=== PATIENT | male | born 1965 | race Caucasian/White ===

== ENCOUNTER → 2021-01-13 11:05 | Outpatient (BNVA) | payer SELFPAY | PROVIDERS: Visit Provider Internal Medicine | DX: Z02.79 Encounter for issue of other medical certificate (principal) ==

== ENCOUNTER → 2022-01-09 10:09 | Outpatient (BNVA) | payer SELFPAY | PROVIDERS: Visit Provider Internal Medicine | DX: Z02.79 Encounter for issue of other medical certificate (principal) ==

== ENCOUNTER → 2023-01-01 11:01 | Outpatient (BNVA) | payer SELFPAY | PROVIDERS: Visit Provider Internal Medicine | DX: Z02.79 Encounter for issue of other medical certificate (principal) ==

== ENCOUNTER 2023-10-24 08:52 | Outpatient (AMB) | payer OTHER, SELFPAY ==
--- NOTE | 2023-10-24 09:11 | MHC.OFFVIS ---
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 Patient states pain started approximately a year ago. Pain is mainly on his volar aspect of the hand.Patient has tried injections in the past which he has good relief. Patient would like to discuss injection. Hx of trigger finger sx at [facility] about 5 years ago. 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 He complains of painful locking of his left middle finger for a long time. He says he has a hx of relief from steroid injections at an outside clinic. He is requesting an injection today. He has a hx of a previous trigger finger releases at [facility] in ~2018, of his right middle & left ring fingers. 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 He works as a school fundraising director. [facility] Medical History History of seasonal allergies History of hypothyroidism History of hypotension Social History (Updated 10/24/23 @ 09:21 by Kylah Solorzano) Alcohol intake: never Patient Tobacco Use Status: Never used Tobacco Current occupational status: employed Current occupation: school fundraising director/ right hand dominant Review of Systems Const All systems reviewed & are unremarkable except as noted in HPI and below Physical Exam Vital Signs: BMI result Body Mass Index 35.6 Const General: cooperative, healthy appearing and no acute distress Orientation/consciousness: patient oriented x3 HEENT Head: Yes normocephalic and Yes atraumatic Eyes EOM: EOMs intact bilaterally Resp Effort & Inspection: normal respiratory effort and able to speak in complete sentences Cardio Jugular venous distension: no JVD Skin General skin exam: turgor normal Rashes: no rashes Neuro General: patient oriented x3 Extrem Other: Evaluation of Left Upper Extremity: The patient is alert, oriented, and in no acute distress Neuro: Median, Ulnar, Radial nerves motor and sensory intact and sensation is normal to the tips of all digits Vascular: Cap refill brisk ROM: He can make a fist and extend all his digits, except for his index finger He has a flexion contracture of his left index PIP joint of ~90 degrees, and the DIP joint of ~70 degrees. This is not passively reducible He has good flexion at the index finger MCP joint He has scars over the index finger a1 dominik, extending up the volar & radial aspect of the index finger Visible and palpable locking & catching of the middle finger Tender over the middle finger a1 dominik Skin: No lacerations or abrasions. General: No Ecchymosis. No Erythema or evidence of infection. Psych Appearance: grossly normal Affect: normal affect Attitude: cooperative Assessment & Plan Assessment & Plan (1) Trigger finger, left middle finger: Code(s): M65.332 - Trigger finger, left middle finger Category: Medical (2) Diabetes mellitus: Code(s): E11.9 - Type 2 diabetes mellitus without complications Category: Medical Plan Assessment & Plan: 1. Left middle finger trigger finger Hx of injections at an outside clinic I educated him about this condition I discussed operative and non-operative treatment options The patient would like to proceed with surgery The risks and benefits of operative treatment were discussed with the patient and the patient wishes to proceed with surgery. These risks include, but are not limited to risk of damage to blood vessels, nerves, tendons, infection, recurrence, incomplete relief of preoperative symptoms, persistent pain, possible need for further surgery and the risks associated with regional blocks and anesthesia. The plan is to take the patient to the operating room sometime in the next few weeks for the following procedures: 1. Left middle finger trigger release, under local All of the preoperative paperwork including the consent was reviewed today. All the patient's questions were answered. The patient understands that they will be contacted by our plastic surgery assistant soon to schedule this procedure. He would like to be put on the cancellation list for a sooner surgery He denies blood thinners, asthma, heart, lung, kidney issues He is a Diabetic, he says this is controlled but he does not know his most recent HgA1c. They will need an updated HgA1c that is <8.1% in order to proceed with surgery, and they expressed understanding Scribed for Valeria Acevedo MD by Jonathon Cage registered medical assistant, on 10/24/23 at 9:45 AM, EST. Coding Level of Care Code New Pt Level 4 (06806) Diagnoses Trigger finger, left middle finger M65.332 Diabetes mellitus E11.9
[2023-10-24 09:20] VITALS: BMI 35.6
== END 2023-10-24 11:36 | disposition home or self-care (01) ==
PROVIDERS: PCP Physician Assistant; Visit Provider Orthopaedic Surgery
DX: M65.332 Trigger finger, left middle finger (principal); E11.9 Type 2 diabetes mellitus without complications
CPT/HCPCS: 99204

== ENCOUNTER → 2023-10-24 08:52 | Outpatient (BNVA) | payer OTHER, SELFPAY | PROVIDERS: PCP Physician Assistant; Visit Provider Orthopaedic Surgery | DX: M65.332 Trigger finger, left middle finger (principal) | CPT/HCPCS: 99202 ==

== ENCOUNTER → 2023-12-26 07:45 | Outpatient (BNVA) | payer SELFPAY | PROVIDERS: PCP Physician Assistant; Visit Provider Internal Medicine ==

== ENCOUNTER 2023-12-27 08:55 | Day surgery (SDC) | payer OTHER, SELFPAY ==
[2023-12-27 09:55] VITALS: BMI 35.7
[2023-12-27 10:02] VITALS: BP 132/73; PULSE 63; RESP 16; TEMP 36.4; O2SAT 99
--- NOTE | 2023-12-27 11:16 | P.OP_ITS ---
Operative Note Operative Note Date of Service: 12/27/23 Narrative: Operative Note Preop diagnosis: 1. Left middle finger Trigger finger Postop diagnosis: 1. Left middle finger Trigger finger Procedure: 1. Left middle finger A1 dominik release Surgeon: Valeria Acevedo MD Windsurfing Instructor: Zane GOMEZ Anesthesia: local block using 1% lidocaine with epinephrine Findings: No locking or catching after A1 dominik release EBL: Less than 5 mL Tourniquet time: None Specimens: None Complications: None Disposition: Brought to recovery room in stable condition Plan: Follow-up for 10-14 days for wound check and suture removal Indications: The patient is 58 years old, with a left middle finger trigger finger that has been unresponsive to nonoperative management. The risks and benefits of operative treatment including but not limited to risk of damage to blood vessels, nerves, tendons, infection, persistent pain, persistent symptoms, recurrence or possible need for additional surgery were discussed with the patient and the patient wishes to proceed with surgery. Procedure: Once consent was obtained a local block was performed in the preop area using a combination of 1% lidocaine with epinephrine. The patient was then brought back to the operating suite and placed on the operative table in supine position. The left upper extremity was prepped and draped in a standard surgical fashion. Once assured that we had a good block, a 1.5 cm oblique incision was made centered over the A1 dominik of the left middle finger . The incision was made through the skin to the subcutaneous tissues using a #15 blade. Careful dissection was made down to the level of the A1 dominik using tenotomy scissors, with care being taken to protect the nearby neurovascular structures. A longitudinal incision was made in the A1 dominik 1st using a #15 blade, then using tenotomy scissors under direct visualization. The A1 dominik was noted to be thickened. Following our A1 dominik release, we no longer saw any locking or catching of the digit with flexion and extension. Once satisfied with our A1 dominik release the wound was copiously irrigated with normal saline and hemostasis was obtained with a brief period of local pressure. The skin edges were reapproximated with some 5.0 nylon suture material and a sterile dressing was applied. The patient appears to have tolerated the procedure well and with no complications. All digits were well vascularized at the conclusion of the case.
--- NOTE | 2023-12-27 11:16 | MHC.SHP ---
Pre-Procedural Eval Section A - 24 Hr Update-Section A only Date of Service: 12/27/23 The patient is an INPATIENT: No Changes since office visit: No Cold of Flu in the past 2 weeks, No New Medical Problems, No Changes in Medication and No Patient answered all questions The patient has been examined within 24 hours of the surgical procedure. The History & Physical has been completed within 30 days and I have reviewed it.: Yes Section B - Complete if H&P > 30 days Chief Complaint: Trigger finger, left middle finger Allergies: Allergies Allergy/AdvReac Type Severity Reaction Status Date / Time ILAN Inhibitors Allergy Cough Verified 10/24/23 10:03 Plan Diagnosis/Plan: Unchanged I have reviewed the history and physical and performed a pertinent physical examination on my patient. No changes have occurred unless specified. Time Spent With Patient Time: Total time managing care of this patient today ____ minutes.
[2023-12-27 11:50] VITALS: BP 108/58; PULSE 73; RESP 18; O2SAT 98
--- NOTE | 2023-12-27 12:57 | PC.NURSE ---
11:55. Patient speaks and understands Palestinian well. has prescribed pain meds at home.
== END 2023-12-27 11:55 | disposition home or self-care (01) ==
PROVIDERS: PCP Physician Assistant; Visit Provider Orthopaedic Surgery
PROC: (CPT 26055; principal; 2023-12-27 10:20)
DX: M65.332 Trigger finger, left middle finger (principal); E11.9 Type 2 diabetes mellitus without complications
CPT/HCPCS: 26055; J0171

== ENCOUNTER → 2023-12-27 08:55 | Outpatient (BNV) | payer OTHER, SELFPAY | PROVIDERS: PCP Physician Assistant; Visit Provider Orthopaedic Surgery | DX: M65.332 Trigger finger, left middle finger (principal) | CPT/HCPCS: 26055 ==

== ENCOUNTER 2024-01-08 09:14 | Outpatient (AMB) | payer OTHER, SELFPAY ==
[2024-01-08 09:26] VITALS: BMI 35.6
--- NOTE | 2024-01-08 09:26 | A.OFFVIS_ITS ---
Vital Signs 01/08/24 09:26 Height 6 ft 1 in Weight 270 lb BMI 35.6 Intake Visit Reasons: PO-Lt MF Trigger Release 12/27/23 Intake Note: Elvin is a 58 yo right hand dominant male who presents today post operatively s/p left middle finger trigger release done by Dr. Acevedo on 12/27/23. Patient reports taking Ibuprofen 800 mg for pain with relief. Denies numbness and tingl ing. Reports left index locking on finger. Sutures removed in office today and steri strips applied. Allergies ILAN Inhibitors Allergy (Verified 10/24/23 10:03) Cough HPI HPI PO-Lt MF Trigger Release 12/27/23: Details: Elvin is a 58 year old right hand dominant Diabetic man who returns S/P left middle finger trigger release, DOS: 12/27/23. He says he is doing okay. He complains of pain & stiffness in his middle finger, and says he has not been bending his finger often at home. He denies any locking of his middle finger. He wants to know if there is a muscle relaxant or something else he can do at home, such as soaking it in hot water. He has a hx of a previous trigger finger releases at [facility] in ~2018, of his right middle & left ring fingers. 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 He works as a middle school pe teacher. 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 Sutures removed and Steri-Strips applied With encouragement, he can make a fist and extend all his digits, except for his index finger No locking or catching of his middle finger We worked on ROM exercises today in clinic her mild middle finger stiffness He has a flexion contracture of his left index PIP joint of ~90 degrees, and the DIP joint of ~70 degrees. This is not passively reducible He has good flexion at the index finger MCP joint He has scars over the index finger a1 dominik, extending up the volar & radial aspect of the index finger Sensation is intact Cap refill is brisk Psych Appearance: grossly normal Affect: normal affect Attitude: cooperative Assessment & Plan Assessment & Plan (1) Trigger finger, left middle finger: Code(s): M65.332 - Trigger finger, left middle finger Category: Medical (2) Diabetes mellitus: Code(s): E11.9 - Type 2 diabetes mellitus without complications Category: Medical Plan Assessment & Plan: 1. Left middle finger trigger finger, S/P release DOS: 12/27/23 The patient appears to be doing well post-operatively I educated him about the post-operative course I discussed activity modifications, he is to lift nothing heavier than a cellphone for the next two weeks We worked on ROM exercises today in clinic. He should perform ROM exercises 20x daily at home to improve his finger stiffness He should avoid any underwater activities for the next 5 days He should gently massage about the incision site to reduce the risk of hypersensitivity He can follow up prn Scribed for Valeria Acevedo MD by greg Padron scribe, on 01/08/24 at 10:15 AM, EST. Scribe Plan - Not visible on output: Scribed for Valeria Acevedo MD by greg Padron scribe, on [ ] at [ ], EST. Coding Level of Care Code Global (63999) Diagnoses Trigger finger, left middle finger M65.332 Diabetes mellitus E11.9
== END 2024-01-08 10:19 | disposition home or self-care (01) ==
PROVIDERS: PCP Physician Assistant; Visit Provider Orthopaedic Surgery
DX: M65.332 Trigger finger, left middle finger (principal); E11.9 Type 2 diabetes mellitus without complications
CPT/HCPCS: 99024

== ENCOUNTER → 2024-01-08 09:14 | Outpatient (BNVA) | payer OTHER, SELFPAY | PROVIDERS: PCP Physician Assistant; Visit Provider Orthopaedic Surgery | DX: M25.642 Stiffness of left hand, not elsewhere classified (principal); Z47.89 Encounter for other orthopedic aftercare; Z98.890 Other specified postprocedural states; Z87.39 Personal history of other diseases of the musculoskeletal system and connective tissue | CPT/HCPCS: 99212 ==